=== PATIENT | female | born 1980 | race Caucasian/White ===

== ENCOUNTER 2021-07-14 22:51 | Emergency (ER) | payer MEDICAID ==
[~2021-07-14] VITALS: Ht 167.6 cm; Wt 102.7 kg
[~2021-07-14 22:51] MED LIST: CLON-595 PO; DOXY100C PO; INSLAN SQ; LEVO50TA11 PO; PARO40TA PO; SULF-168 PO
[2021-07-15] MEDS ORDERED: IBUPROFEN 600 MG TABLET PO ONE (01:00)
[2021-07-15 02:46] VITALS: BP 135/84
== END 2021-07-15 04:28 | disposition home or self-care (01) ==
LOC: EMS 22:53
DX: S93.401A Sprain of unspecified ligament of right ankle, initial encounter (principal); E11.9 Type 2 diabetes mellitus without complications; K21.9 Gastro-esophageal reflux disease without esophagitis; I10 Essential (primary) hypertension; Z79.4 Long term (current) use of insulin; X50.1XXA Overexertion from prolonged static or awkward postures, initial encounter; Y93.01 Activity, walking, marching and hiking; Y92.89 Other specified places as the place of occurrence of the external cause; Y99.8 Other external cause status
CPT/HCPCS: 29515; 99282; 99283